=== PATIENT | male | born 1995 | race Caucasian/White ===

== ENCOUNTER → 2017-09-07 | Outpatient (CLI) | payer BC ==
--- NOTE | 2017-09-07 12:39 | DIAGNOSTIC IMAGING REPORT ---
ART DOP DUP UPPER EXT UNI CLINICAL HISTORY: THORACIC OUTLET SYNDROME pain TECHNIQUE: Arterial Doppler in various positions. COMPARISON STUDY: None FINDINGS: With the patient in a semireclining to push up position, waveforms involving the right arm PICC, somewhat dampened. Patient describes numbness and pain at within the right arm at this time. This may indicate vascular compromise to the right arm on a positional basis. No significant anomaly involving the left arm is appreciated. IMPRESSION: 1. Findings on a positional basis consistent with potential vascular compromise to the right arm. 2. This potentially indicates a proximal lesion or structural defect involving the proximal right arm and/or axillary region creating a thoracic outlet type presentation. 3. CT angiography of the chest and arms is suggested as initial follow-up. The above report was generated using voice recognition software. It may contain grammatical, syntax or spelling errors. Electronically signed by: Burt Nina M.D. 09/07/2017 12:38 PM Dictated Date/Time: 09/07/2017 12:35 PM
== END | disposition home or self-care (01) ==
LOC: C.ULTR 10:59
PROVIDERS: ATTEND Physician Assistant
DX: M25.511 Pain in right shoulder (principal)

== ENCOUNTER → 2017-09-15 | Outpatient (CLI) | payer BC ==
[~2017-09-15] MED LIST: OPTIRAY 320 IV PRN
--- NOTE | 2017-09-15 08:31 | DIAGNOSTIC IMAGING REPORT ---
CHEST AND BILATERAL UPPER EXTREMITY CTA CT DOSE: 521.14 mGy.cm HISTORY: Evaluate for thoracic outlet syndrome. Right arm numbness while weight lifting. TECHNIQUE: Multiaxial CT images of the chest and bilateral upper extremities were performed after the intravenous administration of contrast to evaluate the major arterial structures. Maximal intensity projection images were also obtained. A dose lowering technique was utilized adhering to the principles of ALARA. COMPARISON STUDY: Right upper extremity arterial Doppler study 09/07/2017. FINDINGS: No significant stenosis or occlusion within the bilateral subclavian, axillary, or proximal brachial arteries. The brachiocephalic and visualized common carotid arteries are also widely patent. The thoracic aorta is normal in course and caliber with no evidence for dissection. Venous structures are not well evaluated due to the lack of intravenous contrast. The heart is normal in size. The central pulmonary arteries are patent. No significant bony abnormalities identified. No cervical ribs are present. The central airways are patent. No pneumothorax. No pleural effusions. The lungs are clear. The visualized liver, spleen, and adrenal glands are unremarkable. No mediastinal, hilar, or axillary lymphadenopathy. IMPRESSION: 1. No significant stenosis or occlusion within the major arterial structures of the chest and upper extremities. 2. No CT evidence for thoracic outlet syndrome. Electronically signed by: Alexis Wilkinson M.D. 09/15/2017 8:30 AM Dictated Date/Time: 09/15/2017 8:15 AM
== END ==
LOC: C.CTS 07:16
PROVIDERS: ATTEND Physician Assistant
DX: G54.0 Brachial plexus disorders (principal)